=== PATIENT | male | born 1970 | race Caucasian/White ===

== ENCOUNTER 2019-05-27 07:00 | Day surgery (SDC) | payer MEDICAID ==
[~2019-05-27] VITALS: Ht 177.8 cm; Wt 106.6 kg
[~2019-05-27 07:00] MED LIST: LACTATED RINGERS 1,000 ML IV SCH
[2019-05-27] MEDS ORDERED: BUPIVACAINE/EPINEPH/PF 0.25%/0.0005 10ML ONE ×2 (07:40→09:11)
[2019-05-27] MEDS ORDERED: MORPHINE SULFATE/PF 1MG/ML 10ML AMP ONE (07:41)
[2019-05-27] MEDS ORDERED: EPINEPHRINE 1:1000 1 MG/ML AMP ONE (07:41)
[2019-05-27] MEDS ORDERED: MIDAZOLAM HCL 2 MG/2 ML VIAL ONE (08:20)
[2019-05-27] MEDS ORDERED: PROPOFOL 200MG/20ML VIAL IV ONE (08:20)
[2019-05-27] MEDS ORDERED: GLYCOPYRROLATE 0.2 MG/ML 2ML VIAL ONE ×2 (08:20→10:09)
[2019-05-27] MEDS ORDERED: FENTANYL CITRATE/PF 50MCG/ML 2ML VIAL ONE ×2 (08:20→09:04)
[2019-05-27] MEDS ORDERED: ONDANSETRON HCL 4MG/2ML INJ ONE (08:21)
[2019-05-27] MEDS ORDERED: SUCCINYLCHOLINE CHLORIDE 200MG/10ML IV ONE (08:21)
[2019-05-27] MEDS ORDERED: LIDOCAINE HCL/PF 1% 10 MG/ML 5ML VIAL ONE (08:21)
[2019-05-27] MEDS ORDERED: METOCLOPRAMIDE HCL 10MG/2ML VIAL ONE (08:21)
[2019-05-27] MEDS ORDERED: ROCURONIUM BROMIDE 10MG/ML VIAL 5ML IV ONE (08:38)
[2019-05-27] MEDS ORDERED: SKIN ADHESIVE 0.7 GM EA TOP ONE (09:39)
[2019-05-27] MEDS ORDERED: NEOSTIGMINE METHYLSULFATE 1MG/ML 10 ML VIAL ONE (10:08)
[2019-05-27] MEDS ORDERED: ALBUTEROL 90MCG/PUFF 17GM INHALER INH ONE (10:09)
[2019-05-27] MEDS ORDERED: SODIUM CHLORIDE 0.9% 1,000 ML IV ONE (10:13)
[2019-05-27] MEDS ORDERED: MEPERIDINE HCL/PF 25MG/ML CPJ IV PRN (10:15)
[2019-05-27] MEDS ORDERED: ONDANSETRON HCL 4MG/2ML INJ IV PRN (10:15)
[2019-05-27] MEDS ORDERED: HYDROMORPHONE HCL/PF 2MG/ML CPJ IV PRN (10:15)
[2019-05-27] MEDS ORDERED: MORPHINE SULFATE 2 MG/ML CPJ (NOT FOR IM USE) IV PRN (10:15)
[2019-05-27] MEDS ORDERED: HYDROCODONE/ACETAMINOPHEN 10/325MG TABLET PO PRN (10:30)
[2019-05-27 11:34] VITALS: BP 124/87
== END 2019-05-27 14:00 | disposition home or self-care (01) ==
LOC: OR 07:00
PROVIDERS: ATTEND Orthopaedic Surgery
DX: S83.242A Other tear of medial meniscus, current injury, left knee, initial encounter (principal); S83.282A Other tear of lateral meniscus, current injury, left knee, initial encounter; M94.262 Chondromalacia, left knee; M65.88 Other synovitis and tenosynovitis, other site; G89.29 Other chronic pain; Z98.890 Other specified postprocedural states; X58.XXXA Exposure to other specified factors, initial encounter; Y93.89 Activity, other specified; Y92.89 Other specified places as the place of occurrence of the external cause; Y99.8 Other external cause status
CPT/HCPCS: 29876; 29880; 88304; 88311; 97116; 97161; J0171; J0330; J1170; J2250; J2274; J2405; J2704; J2710; J2765; J3010; J3490